=== PATIENT | female | born 1960 | race American Indian/Alaskan Native ===

== ENCOUNTER 2017-07-16 09:23 | Emergency (ER) | payer OTHER ==
[2017-07-16 09:41] VITALS: BP 146/99
[2017-07-16 10:45] LABS: Basophils # (Auto) 0.1 K/mm3 (0.0-0.1); Basophils % (Auto) 1.1 % (0.0-1.8); Eosinophils # (Auto) 0.1 K/mm3 (0.0-0.4); Eosinophils % (Auto) 2.7 % (0.0-4.3); Hematocrit 43.8 % (30.3-42.9); Hemoglobin 14.3 gm/dl (10.1-14.3); Lymphocytes # (Auto) 1.3 K/mm3 (1.2-5.4); Lymphocytes % (Auto) 25.7 % (13.4-35.0); Mean Corpuscular HGB Conc 33 % (30-34); Mean Corpuscular Hemoglobin 30 pg (28-32); Mean Corpuscular Volume 91 fl (79-97); Monocytes # (Auto) 0.3 K/mm3 (0.0-0.8); Platelet Count 215 K/mm3 (140-440); Red Cell Distribution Width 15.3 % (13.2-15.2)
[2017-07-16 10:55] LABS: Alanine Aminotransferase 9 units/L (7-56); Albumin 4.6 g/dL (3.9-5); BUN/Creatinine Ratio 9; Blood Urea Nitrogen 7 mg/dL (7-17); Calcium 9.9 mg/dL (8.4-10.2); Hemolysis Index 15
[2017-07-16 12:02] LABS: Bilirubin,Urine NEG (Negative); Blood,Urine NEG (Negative); Color,Urine Yellow (Yellow); Mucus,Urine FEW /HPF; Protein,Urine <15 mg/dL mg/dL (Negative); Urobilinogen,Urine < 2.0 mg/dL (<2.0)
--- NOTE | 2017-07-16 12:41 | Emergency Department Report ---
Blank Doc - Documentation Documentation: Patient is a 56-year-old asthmatic female sent to days of cough congestion and sinus pressure body aches. Patient states she has subjective fevers. Patient will have chest x-ray rule out atypical pneumonia H and has pain in the ethmoid sinus region consistent with an acute sinusitis
--- NOTE | 2017-07-16 13:21 | XRay Report ---
ROUTINE CHEST, TWO VIEWS: HISTORY: Cough. The trachea, heart, mediastinal contour, lung dior and bony thorax are unremarkable. IMPRESSION: Unremarkable chest x-ray.
--- NOTE | 2017-07-16 13:31 | Emergency Department Report ---
HPI - General Chief Complaint: Chest Pain Time Seen by Provider: 07/16/17 12:35 - HPI HPI: Patient is a 56-year-old female with no prior medical condition presents to ED presents with upper respiratory symptoms such as cough,, body aches and fever 2 days. Patient states cough is intermittent and productive with sputum. Patient states she takes a blood pressure medication daily.. ED Past Medical Hx - Past Medical History Previous Medical History?: Yes Hx Hypertension: Yes Additional medical history: anemia - Surgical History Past Surgical History?: Yes Hx Breast Surgery: Yes (reduction) - Social History Smoking Status: Never Smoker Substance Use Type: None - Medications Home Medications: Home Medications Medication Instructions Recorded Confirmed Last Taken Type ALBUTEROL Inhaler [ProAir HFA 1 puff IH TID #1 pump 07/16/17 Unknown Rx Inhaler] Acetamin/Codeine 120-12Mg/5 ml 5 ml PO TID PRN #60 ml 07/16/17 Unknown Rx [Tylenol/Codeine] Amoxicillin/K Clav Tab [Augmentin 1 tab PO Q12HR #14 tab 07/16/17 Unknown Rx 875 mg] Benzonatate [Tessalon Perles] 100 mg PO Q8HR #24 capsule 07/16/17 Unknown Rx ED Review of Systems ROS: Stated complaint: FLU LIKE SYMPTOMS Other details as noted in HPI Constitutional: denies: chills, fever Eyes: denies: eye pain, eye discharge, vision change ENT: denies: ear pain, throat pain Respiratory: denies: cough, shortness of breath, wheezing Cardiovascular: denies: chest pain, palpitations Endocrine: no symptoms reported Gastrointestinal: denies: abdominal pain, nausea, diarrhea Genitourinary: denies: urgency, dysuria, discharge Musculoskeletal: denies: back pain, joint swelling, arthralgia Skin: denies: rash, lesions Neurological: denies: headache, weakness, paresthesias Psychiatric: denies: anxiety, depression Hematological/Lymphatic: denies: easy bleeding, easy bruising Physical Exam - Physical Exam Vital Signs: Vital Signs 07/16/17 09:37 Temperature 98.6 F Pulse Rate 82 Respiratory 18 Rate Blood Pressure 146/99 O2 Sat by Pulse 98 Oximetry Physical Exam: GENERAL: Alert and oriented x3, no apparent distress, Normal Gait, atraumatic. HEAD: Head is normocephalic and a-traumatic. EYES: Extra ocular muscles are intact. Pupils are equal, round, and reactive to light and accommodation. EARS: symetrical, atraumatic, non tender, ear canal clear and moderate cerumen, tympanic membrance non inflamed. gross auditory nml bilaterally. NOSE: Nose symetrical, Nontender,Nares appeared normal. MOUTH:Mouth is well hydrated and without lesions. Tonsils nonerythematous or swollen, Uvula midline, Tongue not elevated. Mucous membranes are moist. Posterior pharynx clear, no exudate or lesions. Patent airways. NECK: Supple. Non edematous, No carotid bruits. No lymphadenopathy or thyromegaly. No C-spine tenderness LUNGS: Symetrical with respiration, No wheezing, no rales or crackles, CTAB. HEART: S1, S2 present, regular rate and rhythm without murmur, no rubs, no gallops. Non tender to palpation ABDOMEN: No organomegaly was noted,Positive bowel sounds, soft, and non- distended. . Nontender to palpation on all Quadrants, NO CVA tenderness. BACK: Full range of motion, no spinal tenderness, nontender to palpation. BREAST: Symetrical, Supple bilaterally, No Masses, lumps, lesions, ulcerations. GENITOURINARY: External genitalia without erythema, exudate or discharge. Vaginal vault is without discharge. Cervix is of normal color without lesion. Cervical os is closed. No bleeding noted. Uterus is noted to be of normal size and nontender. No cervical motion tenderness. No masses are palpated. The adnexa are without masses or tenderness. UROGENITAL: No scrotal mass, Scrotum non tender to palpation bilaterally, no hernia, no scars or penile discharge. EXTREMITIES/MUSCULOSKELETAL: No cyanosis, clubbing, rash, lesions or edema. Full ROM bilaterally. UE/LE Pulses 2+ bilaterally. LE and UE 5+ strength bilaterally, straight leg raise negative bilaterally NEUROLOGIC: The patient is cooperative with no focal neurologic deficits. Normal speech. Normal sensation in bilateral upper and lower extremities, No loss of sensation, SKIN: Warm and dry, No lesions, No ulceration or induration present. ED Course Vital Signs 07/16/17 09:37 Temperature 98.6 F Pulse Rate 82 Respiratory 18 Rate Blood Pressure 146/99 O2 Sat by Pulse 98 Oximetry ED Medical Decision Making - Lab Data Result diagrams: 07/16/17 09:55 07/16/17 09:55 - Radiology Data Radiology results: report reviewed, image reviewed cc: SHANNA LOPEZ MD Fluoro Time In Minutes: ROUTINE CHEST, TWO VIEWS: HISTORY: Cough. The trachea, heart, mediastinal contour, lung dior and bony thorax are unremarkable. IMPRESSION: Unremarkable chest x-ray. Transcribed By: TTR Dictated By: CAMILA VILLAGRAN JR, MD Electronically Authenticated By: CAMILA VILLAGRAN JR, MD Signed Date/Time: 07/16/17 1314 Critical care attestation.: If time is entered above; I have spent that time in minutes in the direct care of this critically ill patient, excluding procedure time. ED Disposition Clinical Impression: Bronchitis, Sinusitis Upper respiratory infection Qualifiers: URI type: unspecified URI Qualified Code(s): J06.9 - Acute upper respiratory infection, unspecified Disposition: DC-01 TO HOME OR SELFCARE Is pt being admited?: No Does the pt Need Aspirin: No Condition: Stable Instructions: Sinusitis (ED), Upper Respiratory Infection (ED), Chronic Bronchitis (ED), Cold Symptoms (ED) Additional Instructions: Make sure to follow up with the primary care physician as discussed. Take all your medications as you've been prescribed. If you have any worsening symptoms or develop new symptoms please return to ED immediately. Prescriptions: Acetamin/Codeine 120-12Mg/5 ml [Tylenol/Codeine] 5 ml PO TID PRN #60 ml PRN Reason: Pain ALBUTEROL Inhaler [ProAir HFA Inhaler] 1 puff IH TID #1 pump Amoxicillin/K Clav Tab [Augmentin 875 mg] 1 tab PO Q12HR #14 tab Benzonatate [Tessalon Perles] 100 mg PO Q8HR #24 capsule Referrals: PRIMARY CAREMD [Primary Care Provider] - 3-5 Days ROBB GRECO MD [Referring] - 3-5 Days [facility] [Outside] - 3-5 Days [facility] [Outside] - 3-5 Days Forms: Accompanied Note, Work/School Release Form(ED) Time of Disposition: 13:40
== END 2017-07-16 14:49 | disposition home or self-care (01) ==
LOC: ED 09:23
DX: J40 Bronchitis, not specified as acute or chronic (principal); J32.9 Chronic sinusitis, unspecified; J06.9 Acute upper respiratory infection, unspecified; I10 Essential (primary) hypertension
CPT/HCPCS: 36415; 71046; 80053; 81001; 84484; 85025; 93005; 93010

== ENCOUNTER 2017-07-25 18:48 | Inpatient (IN) | payer OTHER ==
--- NOTE | 2017-07-25 19:04 | Emergency Department Report ---
ED Neuro Deficit HPI - General Stated Complaint: POSSIBLE STROKE SX Time Seen by Provider: 07/25/17 18:58 Source: patient, family Mode of arrival: Stretcher Limitations: Altered Mental Status, Physical Limitation - History of Present Illness Initial Comments: 57-year-old female with a past medical history of obesity and hypertension presents to the hospital with acute alteration in mental status and possible stroke. Patient is nonverbal upon presentation to the ED therefore history of present illness obtained from her was present during the initiation of symptoms. He estimates since started at approximately 6:15 or 6:30 PM. Patient was on a bed talking on the phone and complained of chest pain and shortness of breath. She tried to stand she fell down to the ground and needed assistance to get up and be placed back into the bed by her . Patient then stopped speaking and developed an abnormal stare. Currently patient makes eye contact and able to follow some commands but not reliably following commands and not nodding yes or no to questions. - Related Data Home Medications: Home Medications Medication Instructions Recorded Confirmed Last Taken Aspirin [Aspir-Low] 81 mg PO DAILY 07/25/17 07/25/17 Unknown Losartan Potassium [Cozaar] 25 mg PO DAILY 07/25/17 07/25/17 Unknown Previous Rx's Medication Instructions Recorded Last Taken Type ALBUTEROL Inhaler [ProAir HFA 1 puff IH TID #1 pump 07/16/17 Unknown Rx Inhaler] Acetamin/Codeine 120-12Mg/5 ml 5 ml PO TID PRN #60 ml 07/16/17 Unknown Rx [Tylenol/Codeine] Amoxicillin/K Clav Tab [Augmentin 1 tab PO Q12HR #14 tab 07/16/17 Unknown Rx 875 mg] Benzonatate [Tessalon Perles] 100 mg PO Q8HR #24 capsule 07/16/17 Unknown Rx Allergies/Adverse Reactions: Allergies Allergy/AdvReac Type Severity Reaction Status Date / Time No Known Allergies Allergy Unverified 07/16/17 09:37 ED Review of Systems ROS: Stated complaint: POSSIBLE STROKE SX Other details as noted in HPI Comment: Unobtainable due to pts medical conditions ED Past Medical Hx - Past Medical History Hx Hypertension: Yes Additional medical history: anemia - Surgical History Hx Breast Surgery: Yes (reduction) - Social History Smoking Status: Never Smoker Substance Use Type: None - Medications Home Medications: Home Medications Medication Instructions Recorded Confirmed Last Taken Type ALBUTEROL Inhaler [ProAir HFA 1 puff IH TID #1 pump 07/16/17 07/25/17 Unknown Rx Inhaler] Acetamin/Codeine 120-12Mg/5 ml 5 ml PO TID PRN #60 ml 07/16/17 07/25/17 Unknown Rx [Tylenol/Codeine] Amoxicillin/K Clav Tab [Augmentin 1 tab PO Q12HR #14 tab 07/16/17 07/25/17 Unknown Rx 875 mg] Benzonatate [Tessalon Perles] 100 mg PO Q8HR #24 capsule 07/16/17 07/25/17 Unknown Rx Aspirin [Aspir-Low] 81 mg PO DAILY 07/25/17 07/25/17 Unknown History Losartan Potassium [Cozaar] 25 mg PO DAILY 07/25/17 07/25/17 Unknown History ED Neuro Physical Exam - General Suspected Stroke: Yes - NIHSS Assessment Interval: Baseline 1a. Level of Consciousness: alert 1b. LOC Questions: answers no questions correctly 1c. LOC Commands: performs no tasks correctly 2. Best Gaze: normal 3. Visual: no visual loss 4. Facial Palsy: normal symmetrical movement 5b. Motor Arm Right: drift 5a. Motor Arm Left: some gravity effort 6a. Motor Leg Left: no gravity effort 6b. Motor Leg Right: no gravity effort 7. Limb Ataxia: absent (unable to access) 8. Sensory: normal 9. Best Language: mute/global aphasia 10. Dysarthria: severe dysarthria 11. Extinction/Inattention: no abnormality - Other Other exam information: General: No limitations, patient is alert in no acute distress Head exam: Atraumatic, normocephalic Eyes exam: Normal appearance, pupils equal reactive to light ENT: Moist mucous membrane, normal oropharynx Neck exam: Normal inspection, full range of motion, no meningismus nontender Respiratory exam: Clear to auscultation bilateral, no wheezes, rales, crackles Cardiovascular: Normal rate and rhythm, normal heart sounds Abdomen: Soft, nondistended, and nontender, with normal bowel sounds, no rebound, or guarding Extremity: Full range of motion normal inspection no deformity Back: Normal Inspection, full range of motion, no tenderness Neurologic: Alert Psychiatric: normal affect, normal mood Skin: Warm, dry, intact ED Course Vital Signs 07/25/17 07/25/17 07/25/17 18:48 19:22 19:24 Pulse Rate 93 H Pulse Rate [ Right Arm] Respiratory 18 Rate Respiratory Rate [Right Arm ] Blood Pressure 201/117 197/118 Blood Pressure [Right Arm] O2 Sat by Pulse 100 98 98 Oximetry O2 Sat by Pulse Oximetry [ Right Arm] 07/25/17 07/25/17 07/25/17 19:26 19:28 19:30 Pulse Rate Pulse Rate [ Right Arm] Respiratory Rate Respiratory Rate [Right Arm ] Blood Pressure 197/118 197/118 197/118 Blood Pressure [Right Arm] O2 Sat by Pulse 96 97 96 Oximetry O2 Sat by Pulse Oximetry [ Right Arm] 07/25/17 07/25/17 07/25/17 19:32 19:34 19:36 Pulse Rate 87 77 81 Pulse Rate [ Right Arm] Respiratory 24 13 19 Rate Respiratory Rate [Right Arm ] Blood Pressure 173/99 173/99 173/99 Blood Pressure [Right Arm] O2 Sat by Pulse 96 97 97 Oximetry O2 Sat by Pulse Oximetry [ Right Arm] 07/25/17 07/25/17 07/25/17 19:38 19:39 19:41 Pulse Rate 80 74 70 Pulse Rate [ Right Arm] Respiratory 24 14 24 Rate Respiratory Rate [Right Arm ] Blood Pressure 173/99 Blood Pressure [Right Arm] O2 Sat by Pulse 96 96 96 Oximetry O2 Sat by Pulse Oximetry [ Right Arm] 07/25/17 07/25/17 07/25/17 19:42 20:09 20:10 Pulse Rate 73 72 Pulse Rate [ Right Arm] Respiratory 26 H 23 Rate Respiratory Rate [Right Arm ] Blood Pressure 173/99 169/100 Blood Pressure [Right Arm] O2 Sat by Pulse 96 97 Oximetry O2 Sat by Pulse Oximetry [ Right Arm] 07/25/17 07/25/17 07/25/17 20:11 20:13 20:15 Pulse Rate 72 77 77 Pulse Rate [ Right Arm] Respiratory 24 25 H 20 Rate Respiratory Rate [Right Arm ] Blood Pressure 169/100 169/100 186/106 Blood Pressure [Right Arm] O2 Sat by Pulse 97 97 97 Oximetry O2 Sat by Pulse Oximetry [ Right Arm] 07/25/17 07/25/17 07/25/17 20:17 20:19 20:21 Pulse Rate 73 76 71 Pulse Rate [ Right Arm] Respiratory 22 24 22 Rate Respiratory Rate [Right Arm ] Blood Pressure 186/106 186/106 186/106 Blood Pressure [Right Arm] O2 Sat by Pulse 98 97 98 Oximetry O2 Sat by Pulse Oximetry [ Right Arm] 07/25/17 07/25/17 07/25/17 20:23 20:25 20:27 Pulse Rate 72 77 69 Pulse Rate [ Right Arm] Respiratory 17 16 22 Rate Respiratory Rate [Right Arm ] Blood Pressure 186/106 186/106 186/106 Blood Pressure [Right Arm] O2 Sat by Pulse 98 96 97 Oximetry O2 Sat by Pulse Oximetry [ Right Arm] 07/25/17 07/25/17 07/25/17 20:28 20:29 20:30 Pulse Rate 72 72 Pulse Rate [ Right Arm] Respiratory 18 22 Rate Respiratory Rate [Right Arm ] Blood Pressure 186/106 186/106 186/103 Blood Pressure [Right Arm] O2 Sat by Pulse 98 98 Oximetry O2 Sat by Pulse Oximetry [ Right Arm] 07/25/17 07/25/17 07/25/17 20:31 20:32 20:33 Pulse Rate 77 78 78 Pulse Rate [ 72 Right Arm] Respiratory 23 20 19 Rate Respiratory 20 Rate [Right Arm ] Blood Pressure 186/103 186/103 Blood Pressure 186/103 [Right Arm] O2 Sat by Pulse 98 97 Oximetry O2 Sat by Pulse 98 Oximetry [ Right Arm] 07/25/17 07/25/17 07/25/17 20:34 20:35 20:37 Pulse Rate 80 82 84 Pulse Rate [ Right Arm] Respiratory 14 23 20 Rate Respiratory Rate [Right Arm ] Blood Pressure 176/94 176/94 176/94 Blood Pressure [Right Arm] O2 Sat by Pulse 98 97 97 Oximetry O2 Sat by Pulse Oximetry [ Right Arm] 07/25/17 07/25/17 07/25/17 20:39 20:40 20:41 Pulse Rate 86 90 90 Pulse Rate [ Right Arm] Respiratory 19 19 17 Rate Respiratory Rate [Right Arm ] Blood Pressure 176/94 185/104 185/104 Blood Pressure [Right Arm] O2 Sat by Pulse 96 98 97 Oximetry O2 Sat by Pulse Oximetry [ Right Arm] 07/25/17 07/25/17 07/25/17 20:43 20:45 20:46 Pulse Rate 86 90 84 Pulse Rate [ Right Arm] Respiratory 14 23 22 Rate Respiratory Rate [Right Arm ] Blood Pressure 185/104 168/85 168/85 Blood Pressure [Right Arm] O2 Sat by Pulse 97 97 96 Oximetry O2 Sat by Pulse Oximetry [ Right Arm] 07/25/17 07/25/17 07/25/17 20:47 20:49 20:51 Pulse Rate 85 85 88 Pulse Rate [ Right Arm] Respiratory 22 25 H 24 Rate Respiratory Rate [Right Arm ] Blood Pressure 168/85 168/85 144/85 Blood Pressure [Right Arm] O2 Sat by Pulse 97 97 96 Oximetry O2 Sat by Pulse Oximetry [ Right Arm] 07/25/17 07/25/17 07/25/17 20:53 20:54 20:55 Pulse Rate 87 89 Pulse Rate [ 85 Right Arm] Respiratory 10 L 20 Rate Respiratory 20 Rate [Right Arm ] Blood Pressure 144/85 145/88 Blood Pressure 144/85 [Right Arm] O2 Sat by Pulse 97 97 Oximetry O2 Sat by Pulse 96 Oximetry [ Right Arm] 07/25/17 07/25/17 07/25/17 20:57 20:59 21:00 Pulse Rate 91 H 86 87 Pulse Rate [ Right Arm] Respiratory 18 26 H 17 Rate Respiratory Rate [Right Arm ] Blood Pressure 145/88 145/88 139/85 Blood Pressure [Right Arm] O2 Sat by Pulse 96 97 97 Oximetry O2 Sat by Pulse Oximetry [ Right Arm] 07/25/17 07/25/17 07/25/17 21:01 21:03 21:05 Pulse Rate 85 89 87 Pulse Rate [ Right Arm] Respiratory 15 23 16 Rate Respiratory Rate [Right Arm ] Blood Pressure 139/85 139/85 144/84 Blood Pressure [Right Arm] O2 Sat by Pulse 97 98 97 Oximetry O2 Sat by Pulse Oximetry [ Right Arm] 07/25/17 07/25/17 07/25/17 21:07 21:09 21:10 Pulse Rate 88 87 84 Pulse Rate [ Right Arm] Respiratory 22 20 16 Rate Respiratory Rate [Right Arm ] Blood Pressure 144/84 144/84 140/80 Blood Pressure [Right Arm] O2 Sat by Pulse 98 97 95 Oximetry O2 Sat by Pulse Oximetry [ Right Arm] 07/25/17 07/25/17 07/25/17 21:11 21:13 21:15 Pulse Rate 84 86 88 Pulse Rate [ Right Arm] Respiratory 20 19 23 Rate Respiratory 20 Rate [Right Arm ] Blood Pressure 140/80 140/80 139/81 Blood Pressure 144/84 [Right Arm] O2 Sat by Pulse 96 96 95 Oximetry O2 Sat by Pulse 97 Oximetry [ Right Arm] 07/25/17 21:17 Pulse Rate 90 Pulse Rate [ Right Arm] Respiratory 20 Rate Respiratory Rate [Right Arm ] Blood Pressure 139/81 Blood Pressure [Right Arm] O2 Sat by Pulse 97 Oximetry O2 Sat by Pulse Oximetry [ Right Arm] - Consultations Consultation #1: 07/25/17 19:[address] Nair with telemetry neurologist. Patient now in CT. will evaluate 07/25/17 19:25 Dr Nair evaluated pt and received verbal consent from for tpa. Labetolol IVP ordered for htn while cardene drip pending from pharmacy. Once systolic blood pressure is less than 185 and diastolic pressure is less than 100 patient will receive ordered TPA. RN informed - Lab Data Result diagrams: 07/25/17 19:02 07/25/17 19:02 Lab Results 07/25/17 07/25/17 07/25/17 Range/Units 19:02 19:02 19:02 WBC 6.0 (4.5-11.0) K/mm3 RBC 4.93 (3.65-5.03) M/mm3 Hgb 14.9 H (10.1-14.3) gm/dl Hct 44.8 H (30.3-42.9) % MCV 91 (79-97) fl MCH 30 (28-32) pg MCHC 33 (30-34) % RDW 14.9 (13.2-15.2) % Plt Count 260 (140-440) K/mm3 Lymph % (Auto) 44.2 H (13.4-35.0) % [place] % (Auto) 8.0 H (0.0-7.3) % Eos % (Auto) 2.0 (0.0-4.3) % Baso % (Auto) 1.1 (0.0-1.8) % Lymph # 2.7 (1.2-5.4) K/mm3 [place] # 0.5 (0.0-0.8) K/mm3 Eos # 0.1 (0.0-0.4) K/mm3 Baso # 0.1 (0.0-0.1) K/mm3 Seg Neutrophils % 44.7 (40.0-70.0) % Seg Neutrophils # 2.7 (1.8-7.7) K/mm3 PT 13.0 (12.2-14.9) Sec. INR 0.94 (0.87-1.13) APTT 36.5 (24.2-36.6) Sec. Thrombin Time 19.5 (15.1-19.6) Sec. Sodium 140 (137-145) mmol/L Potassium 3.7 (3.6-5.0) mmol/L Chloride 101.3 (98-107) mmol/L Carbon Dioxide 25 (22-30) mmol/L Anion Gap 17 mmol/L BUN 11 (7-17) mg/dL Creatinine 0.9 (0.7-1.2) mg/dL Estimated GFR > 60 ml/min BUN/Creatinine Ratio 12 % Glucose 97 (65-100) mg/dL Calcium 9.8 (8.4-10.2) mg/dL Total Creatine Kinase 209 H (30-135) units/L CK-MB (CK-2) 1.8 (0.0-4.0) ng/mL CK-MB (CK-2) Rel Index 0.8 (0-4) Troponin T (0.00-0.029) ng/mL 07/25/17 Range/Units 19:02 WBC (4.5-11.0) K/mm3 RBC (3.65-5.03) M/mm3 Hgb (10.1-14.3) gm/dl Hct (30.3-42.9) % MCV (79-97) fl MCH (28-32) pg MCHC (30-34) % RDW (13.2-15.2) % Plt Count (140-440) K/mm3 Lymph % (Auto) (13.4-35.0) % [place] % (Auto) (0.0-7.3) % Eos % (Auto) (0.0-4.3) % Baso % (Auto) (0.0-1.8) % Lymph # (1.2-5.4) K/mm3 [place] # (0.0-0.8) K/mm3 Eos # (0.0-0.4) K/mm3 Baso # (0.0-0.1) K/mm3 Seg Neutrophils % (40.0-70.0) % Seg Neutrophils # (1.8-7.7) K/mm3 PT (12.2-14.9) Sec. INR (0.87-1.13) APTT (24.2-36.6) Sec. Thrombin Time (15.1-19.6) Sec. Sodium (137-145) mmol/L Potassium (3.6-5.0) mmol/L Chloride (98-107) mmol/L Carbon Dioxide (22-30) mmol/L Anion Gap mmol/L BUN (7-17) mg/dL Creatinine (0.7-1.2) mg/dL Estimated GFR ml/min BUN/Creatinine Ratio % Glucose (65-100) mg/dL Calcium (8.4-10.2) mg/dL Total Creatine Kinase (30-135) units/L CK-MB (CK-2) (0.0-4.0) ng/mL CK-MB (CK-2) Rel Index (0-4) Troponin T < 0.010 (0.00-0.029) ng/mL - EKG Data -: EKG Interpreted by Al EKG shows normal: sinus rhythm, axis (qrs -29), QRS complexes (97), ST-T waves ( no stemi/t inv) Rate: normal (93) - Radiology Data Radiology results: report reviewed read by radiology ct head: No ischemic changes. CTA head: naf CTA neck: naf - Medical Decision Making No change in neurologic exam during ED stay. CTA of unremarkable different endocrine negative for transfer. Patient was admitted here for further treatment for acute stroke symptoms and status post TPA in the ED - Differential Diagnosis CVA, seizure, psychosis, malingering, hypertensive emergency Critical Care Time: No Critical care attestation.: If time is entered above; I have spent that time in minutes in the direct care of this critically ill patient, excluding procedure time. ED Disposition Clinical Impression: Acute CVA (cerebrovascular accident), Uncontrolled hypertension, Received intravenous tissue plasminogen activator (t-PA) in emergency department Disposition: OP ADMIT IP TO THIS HOSP Is pt being admited?: Yes Condition: Stable Time of Disposition: 21:40 (Dr Gramajo/hosp)
[2017-07-25 19:09] LABS: Basophils # (Auto) 0.1 K/mm3 (0.0-0.1); Basophils % (Auto) 1.1 % (0.0-1.8); Eosinophils # (Auto) 0.1 K/mm3 (0.0-0.4); Hematocrit 44.8 % (30.3-42.9); Hemoglobin 14.9 gm/dl (10.1-14.3); Lymphocytes # (Auto) 2.7 K/mm3 (1.2-5.4); Lymphocytes % (Auto) 44.2 % (13.4-35.0); Mean Corpuscular HGB Conc 33 % (30-34); Mean Corpuscular Hemoglobin 30 pg (28-32); Mean Corpuscular Volume 91 fl (79-97); Monocytes # (Auto) 0.5 K/mm3 (0.0-0.8); Platelet Count 260 K/mm3 (140-440); Red Blood Count 4.93 M/mm3 (3.65-5.03); Red Cell Distribution Width 14.9 % (13.2-15.2)
[2017-07-25 19:19] LABS: INR 0.94 (0.87-1.13)
[2017-07-25 19:20] LABS: Creatine Kinase MB 1.8 ng/mL (0.0-4.0); Partial Thromboplastin Time 36.5 Sec. (24.2-36.6); Thrombin Time 19.5 Sec. (15.1-19.6)
[2017-07-25 19:23] LABS: BUN/Creatinine Ratio 12; Blood Urea Nitrogen 11 mg/dL (7-17); Calcium 9.8 mg/dL (8.4-10.2); Hemolysis Index 7
--- NOTE | 2017-07-25 19:23 | Cat Scan Report ---
FINAL REPORT PROCEDURE: CT HEAD/BRAIN WO CON TECHNIQUE: Computerized tomography of the head was performed without contrast material. HISTORY: ams, ? cva COMPARISON: No prior studies are available for comparison. FINDINGS: Skull and scalp: Normal. Paranasal sinuses: Normal. Ventricles and subarachnoid spaces: Normal. Cerebrum: No evidence of hemorrhage, acute infarction or mass . Cerebellum and brainstem: No evidence of hemorrhage, acute infarction or mass. Vasculature: Normal. Comments: No acute ischemic change seen at this time. No hyperdense MCA IMPRESSION: No acute ischemic change. If symptoms persists recommend MRI
[2017-07-25] MEDS ORDERED: NACL 0.9% IV ONE (19:30)
[2017-07-25] MEDS ORDERED: ACTIVASE IV ONE ×2 (19:30)
[2017-07-25] MEDS ORDERED: NORMODYNE IV ONE (19:30)
[2017-07-25] MEDS ORDERED: CARDENE 50 MG in NACL 0.9% 250ML 230 ML IV SCH (20:00)
--- NOTE | 2017-07-25 20:45 | XRay Report ---
FINAL REPORT PROCEDURE: XR CHEST 1V AP TECHNIQUE: Chest radiograph anteroposterior view. CPT 08460 HISTORY: cp COMPARISON: No prior studies are available for comparison. FINDINGS: Heart is mildly enlarged. There is mild congestion. No kamari heart failure. No infiltrate. Shallow inspiration. Morbid obesity. IMPRESSION: Enlarged heart with congestion without evidence of failure. No infiltrate or effusion..
--- NOTE | 2017-07-25 21:13 | Cat Scan Report ---
FINAL REPORT PROCEDURE: CT ANGIO HEAD TECHNIQUE: Computerized tomographic angiography of the head was performed after the IV injection of iodinated nonionic contrast including image processing. The image data was postprocessed using 2-dimensional multiplanar reformatted (MPR) and 3-dimensional (MIP and/or volume rendered) techniques. HISTORY: cva COMPARISON: No prior studies are available for comparison. FINDINGS: Cerebrum: No evidence of hemorrhage, acute ischemia or mass. Cerebellum: No evidence of hemorrhage, acute ischemia or mass. Subarachnoid spaces and ventricles: Normal. Intracranial vessels: Carotid siphon: Normal. Anterior cerebral: Normal. Middle cerebral: Normal. Posterior cerebral:Normal. Vertebral arteries including basilar: Normal. Aneurysms: None. Dural sinuses: Normal. IMPRESSION: Normal Examination.
--- NOTE | 2017-07-25 21:19 | Cat Scan Report ---
FINAL REPORT PROCEDURE: CT ANGIO NECK TECHNIQUE: Computerized tomographic angiography of the neck was performed after the IV injection of iodinated nonionic contrast including image processing. The image data was postprocessed using 2-dimensional multiplanar reformatted (MPR) and 3-dimensional (MIP and/or volume rendered) techniques. HISTORY: cva COMPARISON: No prior studies are available for comparison. Note: Assessment of carotid artery stenosis is based on measurement of the distal internal carotid artery diameter as the denominator for stenosis calculations and the [place] Symptomatic Carotid Endarterectomy Trial (NASCET) stenosis criteria . CPT 3100F FINDINGS: Sinuses: Normal . Non vascular cervical structures: No significant abnormality . Aortic arch: Normal . Right carotid artery: Normal . Left carotid artery: Normal . Vertebral arteries: Normal . IMPRESSION: Normal Examination
[2017-07-25] MEDS ORDERED: SODIUM CHLORIDE FLUSH SYRINGE 10 ML IV PRN (22:09)
[2017-07-25] MEDS ORDERED: APRESOLINE IV PRN (22:09)
--- NOTE | 2017-07-25 22:15 | History and Physical Report ---
History of Present Illness Date of examination: 07/25/17 History of present illness: 57-year-old woman was brought to the emergency room for evaluation. She has a history of hypertension, the son stated that she was on the phone check in someone, she complained of chest pain, shortness of breath and then went a phasic and had difficulty standing. Review of systems is unobtainable NoPAST MEDICAL HISTORY: Hypertension PAST SURGICAL HISTORY: Breast reduction, surgery on left hand SOCIAL HISTORY: No tobacco, alcohol, drugs FAMILY HISTORY: Hypertension Medications and Allergies Allergies Allergy/AdvReac Type Severity Reaction Status Date / Time No Known Allergies Allergy Unverified 07/16/17 09:37 Home Medications Medication Instructions Recorded Confirmed Last Taken Type ALBUTEROL Inhaler [ProAir HFA 1 puff IH TID #1 pump 07/16/17 07/25/17 Unknown Rx Inhaler] Acetamin/Codeine 120-12Mg/5 ml 5 ml PO TID PRN #60 ml 07/16/17 07/25/17 Unknown Rx [Tylenol/Codeine 120-12 mg/5 ml] Benzonatate [Tessalon Perles] 100 mg PO Q8HR #24 capsule 07/16/17 07/25/17 Unknown Rx Losartan Potassium [Cozaar] 25 mg PO DAILY 07/25/17 07/25/17 Unknown History Aspirin [Aspir-Low] 81 mg PO QAM #90 tablet. 08/01/17 Unknown Rx Clopidogrel Bisulfate [Plavix] 75 mg PO QHS #90 tablet 08/01/17 Unknown Rx Simvastatin 20 mg PO QHS #30 tablet 08/01/17 Unknown Rx Active Meds: Active Medications Hydralazine HCl (Apresoline) 5 mg IV Q6H PRN PRN Reason: Keep SBP between 160-185 mm Hg Nicardipine HCl 50 mg/ Sodium (Chloride) 250 mls @ 25 mls/hr IV TITR MARY ANN; Protocol Last Titration: 07/25/17 20:41 Dose: 10 mg/hr, 50 mls/hr Ondansetron HCl (Zofran) 4 mg IV Q8H PRN PRN Reason: N/V unrelieved by Reglan Sodium Chloride (Sodium Chloride Flush Syringe 10 Ml) 10 ml IV PRN PRN PRN Reason: LINE FLUSH Exam - Physical Exam Narrative exam: Gen. appearance: Patient lying in bed, no apparent distress HEENT: Normocephalic, atraumatic, pupils equally round and reactive to light, extraocular movement intact, and no sclericterus,. No JVD or thyromegaly or nodule,neck supple, no carotid bruit ,mucous membranes moist, no exudate or erythema Heart: S1, S2, regular rate and rhythm Lungs: Clear to auscultation bilaterally, breathing comfortable Abdomen: Positive bowel sounds, nontender, nondistended, no organomegaly Extremity: No edema, cyanosis, clubbing Skin: No rash, nodules, warm, dry Neuro: aphasic, difficult to assess - Constitutional Vitals: Temp Pulse Resp BP Pulse Ox 90 20 139/81 97 07/25/17 21:17 07/25/17 21:17 07/25/17 21:17 07/25/17 21:17 Results - Labs CBC & Chem 7: 07/28/17 07:26 07/28/17 07:26 Labs: Abnormal lab results 07/25/17 07/25/17 Range/Units 19:02 19:02 Hgb 14.9 H (10.1-14.3) gm/dl Hct 44.8 H (30.3-42.9) % Lymph % (Auto) 44.2 H (13.4-35.0) % [place] % (Auto) 8.0 H (0.0-7.3) % Total Creatine Kinase 209 H (30-135) units/L - Imaging and Cardiology Chest x-ray: image reviewed CT Scan - head: report reviewed (1 wall) Assessment and Plan CTA is head and neck Assessment Acute CVA, status post TPA Chest pain Hypertension The medicine Obtain MRI of the he, echo, CTA was done done Do neurochecks, cpnsult critical care Consult neurology, physical and occupational therapy Patient fail swallow test, hold oral medications including statin no aspirin, s/p TPA IV Hydralazine for blood pressure control Check cardiac enzymes, d-dimer DVT prophylaxis addendum Nurse called to say patient complain of headache STat CT head obtained, no bleed l
--- NOTE | 2017-07-26 00:59 | Cat Scan Report ---
FINAL REPORT EXAM: CT HEAD/BRAIN WO CON HISTORY: headache post tpa TECHNIQUE: Routine imaging was obtained of the brain without IV contrast. Comparison is made to the previous study 07/25/2017. FINDINGS: Since the baseline study, there is no evidence of acute stroke or hemorrhage. The ventricular system is appropriate in size and is symmetric. The basal cisterns appear normal. The visualized sinuses are clear. The mastoid air cells are well pneumatized. IMPRESSION: No evidence of acute stroke or hemorrhage.
[2017-07-26 01:10] LABS: Creatine Kinase MB 1.5 ng/mL (0.0-4.0)
[2017-07-26 03:43] LABS: Chol/HDL Ratio 3.39 %
[2017-07-26 08:38] LABS: Creatine Kinase MB 1.3 ng/mL (0.0-4.0)
[2017-07-26] MEDS ORDERED: ATIVAN IV ONE (10:21)
[2017-07-26] MEDS ORDERED: ATIVAN ONE (10:22)
--- NOTE | 2017-07-26 11:42 | Magnetic Resonance Report ---
MRI OF THE BRAIN WITHOUT CONTRAST: HISTORY: Stroke PROCEDURE: Multiplanar, multisequence MR imaging of the brain without IV contrast was performed. FINDINGS: Compared to the CT head dated 07/26/17 and 07/25/17. The brain parenchyma signal intensity and its bragg white interface are within normal limits on all sequences. No evidence for acute ischemia, hemorrhage or mass. No chronic infarct or extra-axial fluid collection. The midline structures are central. The basal cisterns are patent. Normal ventricular size. The orbital cavities and sella turcica demonstrate no abnormality. The visualized paranasal sinuses and mastoid air cells are well aerated. IMPRESSION: Unremarkable non-enhanced MRI of the brain.
--- NOTE | 2017-07-26 11:57 | Consultation ---
History of Present Illness Consult date: 07/26/17 Requesting physician: RASHAUN RESENDEZ Reason for Consult: Acute CVA. Chief complaint: Left side weakness. History of present illness: 57-year-old right handed woman with a past medical history of HTN and obesity was brought to the emergency room for evaluation. Her son stated that she was on the phone chatting with someone, then she complained of chest pain, shortness of breath and then went slurry and had difficulty standing. In the ER, she got IV TPA treatment. She has had stat CTA head and neck, both are negative. Right now she complaints of headache on her left side. She also has left side weakness, significant stuttered speech. Past History Past Medical History: hypertension, other (obesity.) Past Surgical History: Other (breast reduction and hand surgery.) Social history: no significant social history Family history: hypertension Medications and Allergies Allergies Allergy/AdvReac Type Severity Reaction Status Date / Time No Known Allergies Allergy Unverified 07/16/17 09:37 Home Medications Medication Instructions Recorded Confirmed Last Taken Type ALBUTEROL Inhaler [ProAir HFA 1 puff IH TID #1 pump 07/16/17 07/25/17 Unknown Rx Inhaler] Acetamin/Codeine 120-12Mg/5 ml 5 ml PO TID PRN #60 ml 07/16/17 07/25/17 Unknown Rx [Tylenol/Codeine] Amoxicillin/K Clav Tab [Augmentin 1 tab PO Q12HR #14 tab 07/16/17 07/25/17 Unknown Rx 875 mg] Benzonatate [Tessalon Perles] 100 mg PO Q8HR #24 capsule 07/16/17 07/25/17 Unknown Rx Aspirin [Aspir-Low] 81 mg PO DAILY 07/25/17 07/25/17 Unknown History Losartan Potassium [Cozaar] 25 mg PO DAILY 07/25/17 07/25/17 Unknown History Active Meds: Active Medications Hydralazine HCl (Apresoline) 5 mg IV Q6H PRN PRN Reason: Keep SBP between 160-185 mm Hg Nicardipine HCl 50 mg/ Sodium (Chloride) 250 mls @ 25 mls/hr IV TITR MARY ANN; Protocol Last Titration: 07/26/17 07:15 Dose: 1 mg/hr, 5 mls/hr Ondansetron HCl (Zofran) 4 mg IV Q8H PRN PRN Reason: N/V unrelieved by Reglan Sodium Chloride (Sodium Chloride Flush Syringe 10 Ml) 10 ml IV PRN PRN PRN Reason: LINE FLUSH Review of Systems All systems: negative (headache, left side weakness, slurry speech. All other 10 points of systems are reviewed and hegative.) Physical Examination - Vital Signs Vital Signs: Vital Signs Pulse Resp BP Pulse Ox 93 H 18 201/117 100 07/25/17 18:48 07/25/17 18:48 07/25/17 18:48 07/25/17 18:48 - Constitutional General appearance: comfortable - EENT EENT: Present: PERRL - Respiratory Respiratory: Present: lungs clear, normal breath sounds - Cardiovascular Cardiovascular: Present: regular rate, no murmurs Extremities: Present: no peripheral edema bilatateraly, no clubbing, cyanosis, no inflammation - Gastrointestinal Gastrointestinal: Present: soft, non-tender, non-distended - Integumentary Integumentary: Present: normal - Neurologic Cranial nerve examination: PERRL, EOMI, other (left face weakness.) Speech examination: other (stuttered speech.) Detailed motor examination: other (4/5 in all extremities. May be give away.) Detailed sensory examination: other (Left side decreased sensation.) Reflexes: 1+: ankle, bicep, knee, tricep - Assessment Assessment Interval: Baseline - Level of Consciousness 1a. Level of Consciousness: alert - LOC Questions 1b. LOC Questions: answers correctly - LOC Command 1c. LOC Commands: performs tasks correctly - Best Gaze 2. Best Gaze: normal - Visual 3. Visual: no visual loss - Facial Palsy 4. Facial Palsy: partial paralysis - Motor Arm 5a. Motor Arm Left: drift - Motor Leg 6a. Motor Leg Left: drift - Limb Ataxia 7. Limb Ataxia: absent (unable to access) - Sensory 8. Sensory: mild/moderate sensory loss - Dysarthria 10. Dysarthria: severe dysarthria - Extinction and Inattention 11. Extinction/Inattention: no abnormality Results - Laboratory Findings CBC and BMP: 07/25/17 19:02 07/25/17 19:02 Abnormal Lab Findings: Abnormal Labs 07/25/17 07/25/17 07/26/17 19:02 19:02 00:22 Hgb 14.9 H Hct 44.8 H Lymph % (Auto) 44.2 H [place] % (Auto) 8.0 H D-Dimer Total Creatine Kinase 209 H 198 H Cholesterol HDL Cholesterol 07/26/17 07/26/17 00:22 03:30 Hgb Hct Lymph % (Auto) [place] % (Auto) D-Dimer 1223.41 H Total Creatine Kinase Cholesterol 214 H HDL Cholesterol 63 H Assessment and Plan 1. Acute dysarthric speech, left face weakness, all extremity weakness. S/P IV TPA. CTA head and neck negative. If she has CVA, NIHSS 8. 2. Acute CVA with negative brain MRI as differential. Echo. 3. Probably complex migraine headache. PRN headache medicine. 4. Follow post TPA protocol. No antithrombus for 24 hours post TPA. Then Aspirin 81 mg q am and plavix 75 mg phs for 3 months. After that plavix only or follow neurology suggestions. 5. HTN. Permissive for 24 hours after CVA if less 180/105, then con optimize. 6. Lipid profile. 7. Obesity. Exercise. 8. Treat risk factors of CVA. 9. OT/PT, rehab and speech. 10. Plan discussed with her. 11. Please call tomorrow neurologist for following up. 12. If D/C, F/U with neurology in 6-8 weeks.
--- NOTE | 2017-07-26 14:12 | Consultation ---
History of Present Illness Consult date: 07/26/17 Reason for consult: other (stroke) History of present illness: Called to evaluate in the CCU admission, case of a 57-year-old -[place] female, who presented to the ER with near syncope, neurological deficit and possible stroke. According to patient's , she was talking on the phone yesterday when she started complaining of pressure in her chest and shortness of breath. She was immediately unable to speak and show signs of weakness on her left arm and leg. He rushed her immediately to the hospital, where telemetry consult was done for neurology and patient was initiated on TPA for stroke. This following negative brain scan for hemorrhage. Currently, the patient remains with what appeared to be aphasia and weakness involving her left upper and lower extremity. No chest pain reported. No hemoptysis. No additional neurological complaints. She just had her head MRI that was reported as negative. Patient is going to be admitted to the CCU in order to monitor blood pressure and neurological signs and symptoms. No additional respiratory history of any respiratory complaints. Family denied specifically any snoring or sleep apnea symptoms. No prior history of DVT or PE. No prior history of cardiac problems. She is pending an echocardiogram this afternoon Admission chest x-ray reported as negative Past History Past Medical History: hypertension, other (obesity.) Past Surgical History: Other (breast reduction and hand surgery.) Social history: no significant social history Family history: hypertension Medications and Allergies Allergies Allergy/AdvReac Type Severity Reaction Status Date / Time No Known Allergies Allergy Unverified 07/16/17 09:37 Home Medications Medication Instructions Recorded Confirmed Last Taken Type ALBUTEROL Inhaler [ProAir HFA 1 puff IH TID #1 pump 07/16/17 07/25/17 Unknown Rx Inhaler] Acetamin/Codeine 120-12Mg/5 ml 5 ml PO TID PRN #60 ml 07/16/17 07/25/17 Unknown Rx [Tylenol/Codeine] Amoxicillin/K Clav Tab [Augmentin 1 tab PO Q12HR #14 tab 07/16/17 07/25/17 Unknown Rx 875 mg] Benzonatate [Tessalon Perles] 100 mg PO Q8HR #24 capsule 07/16/17 07/25/17 Unknown Rx Aspirin [Aspir-Low] 81 mg PO DAILY 07/25/17 07/25/17 Unknown History Losartan Potassium [Cozaar] 25 mg PO DAILY 07/25/17 07/25/17 Unknown History Active Meds: Active Medications Hydralazine HCl (Apresoline) 5 mg IV Q6H PRN PRN Reason: Keep SBP between 160-185 mm Hg Nicardipine HCl 50 mg/ Sodium (Chloride) 250 mls @ 25 mls/hr IV TITR MARY ANN; Protocol Last Titration: 07/26/17 07:15 Dose: 1 mg/hr, 5 mls/hr Sodium Chloride (Nacl 0.9% 1000 Ml) 1,000 mls @ 75 mls/hr IV DIRECT MARY ANN Metoprolol Tartrate (Lopressor) 2.5 mg IV Q6HR MARY ANN Ondansetron HCl (Zofran) 4 mg IV Q8H PRN PRN Reason: N/V unrelieved by Reglan Sodium Chloride (Sodium Chloride Flush Syringe 10 Ml) 10 ml IV PRN PRN PRN Reason: LINE FLUSH Review of Systems ROS unobtainable: due to mental status Constitutional: weight gain Physical Examination Vital signs: Vital Signs Pulse Resp BP Pulse Ox 93 H 18 201/117 100 07/25/17 18:48 07/25/17 18:48 07/25/17 18:48 07/25/17 18:48 General appearance: no acute distress, alert, other (morbidly obese) Eyes: non-icteric ENT: oropharynx moist, other (Mallampati 4 with Shahriar closure) Neck: no JVD Ascultation: Bilateral: clear Cardiovascular: regular rate and rhythm Gastrointestinal: normoactive bowel sounds, non-tender, non-distended Integumentary: normal Extremities: no cyanosis, no edema Musculoskeletal: no deformities CN II-XII normal, other (decreased hand strength with limited flexion and extension of the left upper extremity. Paralyzed left lower extremity. Poor Babinski bilaterally) Results - Laboratory Findings CBC and BMP: 07/25/17 19:02 07/25/17 19:02 PT/INR, D-dimer PT 13.0 Sec. (12.2-14.9) 07/25/17 19:02 INR 0.94 (0.87-1.13) 07/25/17 19:02 D-Dimer 1223.41 ng/mlDDU (0-234) H 07/26/17 00:22 Abnormal lab findings: Abnormal Labs 07/25/17 07/25/17 07/26/17 19:02 19:02 00:22 Hgb 14.9 H Hct 44.8 H Lymph % (Auto) 44.2 H [place] % (Auto) 8.0 H D-Dimer Total Creatine Kinase 209 H 198 H Cholesterol HDL Cholesterol 07/26/17 07/26/17 00:22 03:30 Hgb Hct Lymph % (Auto) [place] % (Auto) D-Dimer 1223.41 H Total Creatine Kinase Cholesterol 214 H HDL Cholesterol 63 H - Diagnostic Findings Chest x-ray: report reviewed, image reviewed CT scan - chest: report reviewed Assessment and Plan Acute left-sided neurological deficit. On workup/treatment for acute stroke Hypertension Morbid obesity Dyspnea episode. Probably related to the above, but may need further workup VINCENT. No symptoms but in view of the above findings and physical exam, still a consideration Recommendations Close neurological monitoring. Blood pressure monitoring, diastolic between 90-108 mmHg, systolic under 180 mmHg ,next 24 to 48 hours Agree with echocardiogram Continue oxygen support if hypoxic and keep oximetry over 92% Monitor for apnea and oxygen desaturation during sleep time In view of dyspnea,normal chest x-rays and elevated d-dimer, I recommend a chest CTA to exclude pulmonary embolism. Cannot anticoagulate after TPA at this point. Also lower extremity venous Doppler DVT screening Will follow-up was admitted to the ICU. Discussed with the patient found in detail. All questions answered
[2017-07-26] MEDS: NACL 0.9% 1000 ML 1,000 ML IV SCH (15:05)
--- NOTE | 2017-07-26 17:42 | Vascular Lab Report ---
LOWER EXTREMITY VENOUS DUPLEX: REASON FOR EXAM: Short of breath and elevated d-dimer. COMMENTS ON THE RIGHT: All veins visualized are freely compressible without evidence of internal echogenicity. Flow is spontaneous and phasic throughout. COMMENTS ON THE LEFT: All veins visualized are freely compressible without evidence of internal echogenicity. Flow is spontaneous and phasic throughout. IMPRESSION: No evidence of acute or chronic deep venous thrombosis in either lower extremity.
--- NOTE | 2017-07-26 18:26 | Progress Note ---
Assessment and Plan Assessment and plan: 57-year-old woman was brought to the emergency room for evaluation. She has a history of hypertension, the son stated that she was on the phone check in someone, she complained of chest pain, shortness of breath and then went a phasic and had difficulty standing. patient remained, incoherent and confused Acute CVA, status post TPA Chest pain Hypertensive urgency Acute Metabolic Encephalopathy Plan Supportive care,. Neurology input noted, speech eval for dysarthria PT/OT eval BP control start Aspirin 81mg and plavix 75mg qhs from AM. post TPA protocol DVT/GI prophy History Interval history: Patient seen and examined in no acute distress. Hospitalist Physical - Physical exam Narrative exam: Gen. Appears stated, age resting comfortable. HEENT: Normocephalic, atraumatic, pupils equally round and reactive to light, extraocular movement intact, and no sclericterus,. No JVD or thyromegaly or nodule,neck supple, no carotid bruit ,mucous membranes moist, no exudate or erythema Heart: S1, S2, regular rate and rhythm Lungs: Clear to auscultation bilaterally, breathing comfortable Abdomen: Positive bowel sounds, nontender, nondistended, no organomegaly Extremity: No edema, cyanosis, clubbing Skin: No rash, nodules, warm, dry Neuro: confused. - Constitutional Vitals: Temp Pulse Resp BP Pulse Ox 99.1 F 94 H 18 116/72 94 07/26/17 15:50 07/26/17 15:50 07/26/17 15:50 07/26/17 15:50 07/26/17 15:50 Results - Labs CBC & Chem 7: 07/25/17 19:02 07/25/17 19:02 Labs: Laboratory Last Values WBC 6.0 K/mm3 (4.5-11.0) 07/25/17 19:02 RBC 4.93 M/mm3 (3.65-5.03) 07/25/17 19:02 Hgb 14.9 gm/dl (10.1-14.3) H 07/25/17 19:02 Hct 44.8 % (30.3-42.9) H 07/25/17 19:02 MCV 91 fl (79-97) 07/25/17 19:02 MCH 30 pg (28-32) 07/25/17 19:02 MCHC 33 % (30-34) 07/25/17 19:02 RDW 14.9 % (13.2-15.2) 07/25/17 19:02 Plt Count 260 K/mm3 (140-440) 07/25/17 19:02 Lymph % (Auto) 44.2 % (13.4-35.0) H 07/25/17 19:02 [place] % (Auto) 8.0 % (0.0-7.3) H 07/25/17 19:02 Eos % (Auto) 2.0 % (0.0-4.3) 07/25/17 19:02 Baso % (Auto) 1.1 % (0.0-1.8) 07/25/17 19:02 Lymph # 2.7 K/mm3 (1.2-5.4) 07/25/17 19:02 [place] # 0.5 K/mm3 (0.0-0.8) 07/25/17 19:02 Eos # 0.1 K/mm3 (0.0-0.4) 07/25/17 19:02 Baso # 0.1 K/mm3 (0.0-0.1) 07/25/17 19:02 Seg Neutrophils % 44.7 % (40.0-70.0) 07/25/17 19:02 Seg Neutrophils # 2.7 K/mm3 (1.8-7.7) 07/25/17 19:02 PT 13.0 Sec. (12.2-14.9) 07/25/17 19:02 INR 0.94 (0.87-1.13) 07/25/17 19:02 APTT 36.5 Sec. (24.2-36.6) 07/25/17 19:02 Thrombin Time 19.5 Sec. (15.1-19.6) 07/25/17 19:02 D-Dimer 1223.41 ng/mlDDU (0-234) H 07/26/17 00:22 Sodium 140 mmol/L (137-145) 07/25/17 19:02 Potassium 3.7 mmol/L (3.6-5.0) 07/25/17 19:02 Chloride 101.3 mmol/L (98-107) 07/25/17 19:02 Carbon Dioxide 25 mmol/L (22-30) 07/25/17 19:02 Anion Gap 17 mmol/L 07/25/17 19:02 BUN 11 mg/dL (7-17) 07/25/17 19:02 Creatinine 0.9 mg/dL (0.7-1.2) 07/25/17 19:02 Estimated GFR > 60 ml/min 07/25/17 19:02 BUN/Creatinine Ratio 12 % 07/25/17 19:02 Glucose 97 mg/dL (65-100) 07/25/17 19:02 POC Glucose 95 (70-105) 07/25/17 19:00 Calcium 9.8 mg/dL (8.4-10.2) 07/25/17 19:02 Total Creatine Kinase 135 units/L (30-135) 07/26/17 06:01 CK-MB (CK-2) 1.3 ng/mL (0.0-4.0) 07/26/17 06:01 CK-MB (CK-2) Rel Index 0.9 (0-4) 07/26/17 06:01 Troponin T < 0.010 ng/mL (0.00-0.029) 07/26/17 06:01 Triglycerides 132 mg/dL (2-149) 07/26/17 03:30 Cholesterol 214 mg/dL (50-199) H 07/26/17 03:30 LDL Cholesterol Direct 127 mg/dL (50-130) 07/26/17 03:30 HDL Cholesterol 63 mg/dL (40-59) H 07/26/17 03:30 Cholesterol/HDL Ratio 3.39 % 07/26/17 03:30 - Imaging and Cardiology MRI - head: image reviewed (negative)
[2017-07-26] MEDS: LOPRESSOR IV SCH ×2 (18:27→23:38)
[2017-07-27] MEDS ORDERED: TYLENOL PR ONE (02:02)
--- NOTE | 2017-07-27 02:17 | Cat Scan Report ---
FINAL REPORT PROCEDURE: CT ANGIO CHEST TECHNIQUE: Computerized tomographic angiography of the chest was performed after the IV injection of iodinated nonionic contrast including image processing. The image data was postprocessed using 2-dimensional multiplanar reformatted (MPR) and 3-dimensional (MIP and/or volume rendered) techniques. HISTORY: presyncope> SOb> stroke,high d dimer COMPARISON: No prior studies are available for comparison. FINDINGS: Heart and pericardium: Normal. Thoracic aorta: Normal. Pulmonary vasculature: There is no evidence of pulmonary arterial emboli. Lymph nodes: No enlarged lymph nodes. Lungs: Mild atelectasis bilateral lower lungs. No consolidation, effusion or pneumothorax. The central airway is patent. Pleural space: No effusion, thickening, or pneumothorax. Musculoskeletal structures: No significant abnormality. Upper abdominal structures: No significant abnormality. IMPRESSION: Atelectasis both lower lungs. No effusion or pneumothorax. There is no evidence of pulmonary arterial emboli.
[2017-07-27] MEDS: LOPRESSOR IV SCH ×3 (06:38→18:26)
[2017-07-27] MEDS: NACL 0.9% 1000 ML 1,000 ML IV SCH ×2 (06:38→21:40)
--- NOTE | 2017-07-27 12:12 | Progress Note ---
Assessment and Plan Assessment and plan: Acute CVA, status post TPA. MRI and CTA head and neck negative. Neurology following. Echocardiogram pending. Aspirin 81 mg q am and plavix 75 mg phs for 3 months. After that plavix only or follow neurology suggestions. Follow- up lipid profile. Continue PT/OT/speech therapy. Probably complex migraine headache. PRN headache medicine. Chest pain. CTA chest was negative. Cardiology consultation. Accelerated hypertension. Continue IV anti-hypertensive medications. Oropharyngeal dysphagia. Await speech therapy evaluation. History Interval history: No new issues overnight. Hospitalist Physical - Constitutional Vitals: Temp Pulse Resp BP Pulse Ox 98.7 F 80 20 140/91 97 07/27/17 09:09 07/27/17 10:00 07/27/17 10:00 07/27/17 09:09 07/27/17 10:00 General appearance: Present: no acute distress, well-nourished - EENT Eyes: Present: PERRL, EOM intact ENT: hearing intact, clear oral mucosa, dentition normal - Neck Neck: Present: supple, normal ROM - Respiratory Respiratory effort: normal Respiratory: bilateral: CTA - Cardiovascular Rhythm: regular Heart Sounds: Present: S1 & S2. Absent: gallop, rub - Extremities Extremities: no ischemia, No edema, Full ROM - Abdominal General gastrointestinal: soft, non-tender, non-distended, normal bowel sounds - Integumentary Integumentary: Present: clear, warm, dry - Neurologic Neurologic: CNII-XII intact, moves all extremities Results - Labs CBC & Chem 7: 07/25/17 19:02 07/25/17 19:02 Labs: Laboratory Last Values WBC 6.0 K/mm3 (4.5-11.0) 07/25/17 19:02 RBC 4.93 M/mm3 (3.65-5.03) 07/25/17 19:02 Hgb 14.9 gm/dl (10.1-14.3) H 07/25/17 19:02 Hct 44.8 % (30.3-42.9) H 07/25/17 19:02 MCV 91 fl (79-97) 07/25/17 19:02 MCH 30 pg (28-32) 07/25/17 19:02 MCHC 33 % (30-34) 07/25/17 19:02 RDW 14.9 % (13.2-15.2) 07/25/17 19:02 Plt Count 260 K/mm3 (140-440) 07/25/17 19:02 Lymph % (Auto) 44.2 % (13.4-35.0) H 07/25/17 19:02 [place] % (Auto) 8.0 % (0.0-7.3) H 07/25/17 19:02 Eos % (Auto) 2.0 % (0.0-4.3) 07/25/17 19:02 Baso % (Auto) 1.1 % (0.0-1.8) 07/25/17 19:02 Lymph # 2.7 K/mm3 (1.2-5.4) 07/25/17 19:02 [place] # 0.5 K/mm3 (0.0-0.8) 07/25/17 19:02 Eos # 0.1 K/mm3 (0.0-0.4) 07/25/17 19:02 Baso # 0.1 K/mm3 (0.0-0.1) 07/25/17 19:02 Seg Neutrophils % 44.7 % (40.0-70.0) 07/25/17 19:02 Seg Neutrophils # 2.7 K/mm3 (1.8-7.7) 07/25/17 19:02 PT 13.0 Sec. (12.2-14.9) 07/25/17 19:02 INR 0.94 (0.87-1.13) 07/25/17 19:02 APTT 36.5 Sec. (24.2-36.6) 07/25/17 19:02 Thrombin Time 19.5 Sec. (15.1-19.6) 07/25/17 19:02 D-Dimer 1223.41 ng/mlDDU (0-234) H 07/26/17 00:22 Sodium 140 mmol/L (137-145) 07/25/17 19:02 Potassium 3.7 mmol/L (3.6-5.0) 07/25/17 19:02 Chloride 101.3 mmol/L (98-107) 07/25/17 19:02 Carbon Dioxide 25 mmol/L (22-30) 07/25/17 19:02 Anion Gap 17 mmol/L 07/25/17 19:02 BUN 11 mg/dL (7-17) 07/25/17 19:02 Creatinine 0.9 mg/dL (0.7-1.2) 07/25/17 19:02 Estimated GFR > 60 ml/min 07/25/17 19:02 BUN/Creatinine Ratio 12 % 07/25/17 19:02 Glucose 97 mg/dL (65-100) 07/25/17 19:02 POC Glucose 95 (70-105) 07/25/17 19:00 Calcium 9.8 mg/dL (8.4-10.2) 07/25/17 19:02 Total Creatine Kinase 135 units/L (30-135) 07/26/17 06:01 CK-MB (CK-2) 1.3 ng/mL (0.0-4.0) 07/26/17 06:01 CK-MB (CK-2) Rel Index 0.9 (0-4) 07/26/17 06:01 Troponin T < 0.010 ng/mL (0.00-0.029) 07/26/17 06:01 Triglycerides 132 mg/dL (2-149) 07/26/17 03:30 Cholesterol 214 mg/dL (50-199) H 07/26/17 03:30 LDL Cholesterol Direct 127 mg/dL (50-130) 07/26/17 03:30 HDL Cholesterol 63 mg/dL (40-59) H 07/26/17 03:30 Cholesterol/HDL Ratio 3.39 % 07/26/17 03:30
[2017-07-27] MEDS: MORPHINE IV PRN ×2 (12:28→20:28)
--- NOTE | 2017-07-27 15:01 | Consultation ---
History of Present Illness Consult date: 07/27/17 History of present illness: full note dictated. Past History Past Medical History: hypertension, other (obesity.) Past Surgical History: Other (breast reduction and hand surgery.) Social history: no significant social history Family history: hypertension Medications and Allergies Allergies Allergy/AdvReac Type Severity Reaction Status Date / Time No Known Allergies Allergy Unverified 07/16/17 09:37 Home Medications Medication Instructions Recorded Confirmed Last Taken Type ALBUTEROL Inhaler [ProAir HFA 1 puff IH TID #1 pump 07/16/17 07/25/17 Unknown Rx Inhaler] Acetamin/Codeine 120-12Mg/5 ml 5 ml PO TID PRN #60 ml 07/16/17 07/25/17 Unknown Rx [Tylenol/Codeine] Amoxicillin/K Clav Tab [Augmentin 1 tab PO Q12HR #14 tab 07/16/17 07/25/17 Unknown Rx 875 mg] Benzonatate [Tessalon Perles] 100 mg PO Q8HR #24 capsule 07/16/17 07/25/17 Unknown Rx Aspirin [Aspir-Low] 81 mg PO DAILY 07/25/17 07/25/17 Unknown History Losartan Potassium [Cozaar] 25 mg PO DAILY 07/25/17 07/25/17 Unknown History Active Meds: Active Medications Hydralazine HCl (Apresoline) 5 mg IV Q6H PRN PRN Reason: Keep SBP between 160-185 mm Hg Sodium Chloride (Nacl 0.9% 1000 Ml) 1,000 mls @ 75 mls/hr IV DIRECT MARY ANN Last Admin: 07/27/17 06:38 Dose: 75 mls/hr Metoprolol Tartrate (Lopressor) 2.5 mg IV Q6HR MARY ANN Last Admin: 07/27/17 11:47 Dose: 2.5 mg Morphine Sulfate (Morphine) 2 mg IV Q6H PRN PRN Reason: Pain , Severe (7-10) Last Admin: 07/27/17 12:28 Dose: 2 mg Ondansetron HCl (Zofran) 4 mg IV Q8H PRN PRN Reason: N/V unrelieved by Reglan Sodium Chloride (Sodium Chloride Flush Syringe 10 Ml) 10 ml IV PRN PRN PRN Reason: LINE FLUSH Physical Examination Vital Signs Pulse Resp BP Pulse Ox 93 H 18 201/117 100 03/15/18 18:48 07/25/17 18:48 07/25/17 18:48 07/25/17 18:48 Results 07/25/17 19:02 07/25/17 19:02
[2017-07-28] MEDS: LOPRESSOR IV SCH ×4 (02:36→18:11)
[2017-07-28] MEDS: MORPHINE IV PRN ×3 (02:56→18:12)
[2017-07-28 08:04] LABS: Basophils # (Auto) 0.1 K/mm3 (0.0-0.1); Eosinophils # (Auto) 0.1 K/mm3 (0.0-0.4); Eosinophils % (Auto) 1.8 % (0.0-4.3); Hematocrit 40.5 % (30.3-42.9); Hemoglobin 13.2 gm/dl (10.1-14.3); Lymphocytes # (Auto) 1.6 K/mm3 (1.2-5.4); Lymphocytes % (Auto) 27.4 % (13.4-35.0); Mean Corpuscular HGB Conc 33 % (30-34); Mean Corpuscular Hemoglobin 30 pg (28-32); Mean Corpuscular Volume 91 fl (79-97); Monocytes # (Auto) 0.4 K/mm3 (0.0-0.8); Monocytes % (Auto) 7.4 % (0.0-7.3); Platelet Count 213 K/mm3 (140-440); Red Blood Count 4.43 M/mm3 (3.65-5.03); Red Cell Distribution Width 15.2 % (13.2-15.2)
[2017-07-28 08:27] LABS: BUN/Creatinine Ratio 18; Blood Urea Nitrogen 14 mg/dL (7-17); Calcium 8.6 mg/dL (8.4-10.2); Hemolysis Index 2
--- NOTE | 2017-07-28 11:04 | Progress Note ---
Assessment and Plan Assessment and plan: Acute CVA, status post TPA. MRI and CTA head and neck negative. Neurology following. Echocardiogram revealed left ventricular chamber size normal with EF of 65-70%. Right ventricle slightly dilated. No intracardiac shunt identified. Aspirin 81 mg q am and plavix 75 mg phs for 3 months. After that plavix only or follow neurology suggestions. Follow-up lipid profile. Continue PT/OT/speech therapy. Physical therapy recommends acute rehabilitation Probably complex migraine headache. PRN headache medicine. Chest pain. CTA chest was negative. Cardiology consultation. Accelerated hypertension. Continue IV anti-hypertensive medications. Oropharyngeal dysphagia. Await speech therapy evaluation. Disposition. Physical therapy recommends acute rehabilitation. Await case management follow-up. History Interval history: No new issues overnight. Hospitalist Physical - Constitutional Vitals: Temp Pulse Resp BP Pulse Ox 98.2 F 71 16 146/86 96 07/28/17 07:46 07/28/17 07:46 07/28/17 07:46 07/28/17 07:46 07/28/17 07:46 General appearance: Present: no acute distress, well-nourished - EENT Eyes: Present: PERRL, EOM intact ENT: hearing intact, clear oral mucosa, dentition normal - Neck Neck: Present: supple, normal ROM - Respiratory Respiratory effort: normal Respiratory: bilateral: CTA - Cardiovascular Rhythm: regular Heart Sounds: Present: S1 & S2. Absent: gallop, rub - Extremities Extremities: no ischemia, No edema, Full ROM - Abdominal General gastrointestinal: soft, non-tender, non-distended, normal bowel sounds - Integumentary Integumentary: Present: clear, warm, dry - Neurologic Neurologic: CNII-XII intact, moves all extremities Results - Labs CBC & Chem 7: 07/28/17 07:26 07/28/17 07:26 Labs: Laboratory Last Values WBC 5.9 K/mm3 (4.5-11.0) 07/28/17 07:26 RBC 4.43 M/mm3 (3.65-5.03) 07/28/17 07:26 Hgb 13.2 gm/dl (10.1-14.3) 07/28/17 07:26 Hct 40.5 % (30.3-42.9) 07/28/17 07:26 MCV 91 fl (79-97) 07/28/17 07:26 MCH 30 pg (28-32) 07/28/17 07:26 MCHC 33 % (30-34) 07/28/17 07:26 RDW 15.2 % (13.2-15.2) 07/28/17 07:26 Plt Count 213 K/mm3 (140-440) 07/28/17 07:26 Lymph % (Auto) 27.4 % (13.4-35.0) 07/28/17 07:26 [place] % (Auto) 7.4 % (0.0-7.3) H 07/28/17 07:26 Eos % (Auto) 1.8 % (0.0-4.3) 07/28/17 07: Baso % (Auto) 1.0 % (0.0-1.8) 07/28/17 07: Lymph # 1.6 K/mm3 (1.2-5.4) 07/28/17 07: [place] # 0.4 K/mm3 (0.0-0.8) 07/28/17 07: Eos # 0.1 K/mm3 (0.0-0.4) 07/28/17 07:26 Baso # 0.1 K/mm3 (0.0-0.1) 07/28/17 07:26 Seg Neutrophils % 62.4 % (40.0-70.0) 07/28/17 07: Seg Neutrophils # 3.7 K/mm3 (1.8-7.7) 07/28/17 07:26 PT 13.0 Sec. (12.2-14.9) 07/25/17 19:02 INR 0.94 (0.87-1.13) 07/25/17 19:02 APTT 36.5 Sec. (24.2-36.6) 07/25/17 19:02 Thrombin Time 19.5 Sec. (15.1-19.6) 07/25/17 19:02 D-Dimer 1223.41 ng/mlDDU (0-234) H 07/26/17 00:22 Sodium 146 mmol/L (137-145) H 07/28/17 07:26 Potassium 3.7 mmol/L (3.6-5.0) 07/28/17 07:26 Chloride 108.8 mmol/L (98-107) H 07/28/17 07:26 Carbon Dioxide 24 mmol/L (22-30) 07/28/17 07:26 Anion Gap 17 mmol/L 07/28/17 07:26 BUN 14 mg/dL (7-17) 07/28/17 07:26 Creatinine 0.8 mg/dL (0.7-1.2) 07/28/17 07:26 Estimated GFR > 60 ml/min 07/28/17 07:26 BUN/Creatinine Ratio 18 % 07/28/17 07:26 Glucose 75 mg/dL (65-100) 07/28/17 07:26 POC Glucose 95 (70-105) 07/25/17 19:00 Calcium 8.6 mg/dL (8.4-10.2) 07/28/17 07:26 Total Creatine Kinase 135 units/L (30-135) 07/26/17 06:01 CK-MB (CK-2) 1.3 ng/mL (0.0-4.0) 07/26/17 06:01 CK-MB (CK-2) Rel Index 0.9 (0-4) 07/26/17 06:01 Troponin T < 0.010 ng/mL (0.00-0.029) 07/26/17 06:01 Triglycerides 132 mg/dL (2-149) 07/26/17 03:30 Cholesterol 214 mg/dL (50-199) H 07/26/17 03:30 LDL Cholesterol Direct 127 mg/dL (50-130) 07/26/17 03:30 HDL Cholesterol 63 mg/dL (40-59) H 07/26/17 03:30 Cholesterol/HDL Ratio 3.39 % 07/26/17 03:30
[2017-07-28] MEDS: NACL 0.9% 1000 ML 1,000 ML IV SCH (11:42)
--- NOTE | 2017-07-28 12:20 | Progress Note ---
Assessment and Plan Acute CVA with Left hemiplegia. S/P TPA. Hypertension. Hyperlipidemia. Plan; Agree with current treatment. For modified barium swallow in Am. Subjective Date of service: 07/28/17 Interval history: Able to use left hand. Unable to move LLE. Scheduled for modified barium swallow tomorrow. Objective Vital Signs Temp Pulse Resp BP Pulse Ox 07/28/17 11:43 73 145/87 07/28/17 07:46 98.2 F 71 16 146/86 96 07/28/17 06:42 68 140/90 07/28/17 04:29 98.5 F 71 18 147/84 95 07/28/17 03:06 56 L 07/28/17 02:36 56 L 146/79 07/28/17 00:20 98.3 F 56 L 18 146/79 97 07/27/17 20:28 20 07/27/17 19:29 98.3 F 60 18 164/85 97 07/27/17 16:36 97.9 F 65 18 121/88 97 07/27/17 12:28 16 - Physical Examination General: Appears Well Neck: Positive: Carotid Upstroke (normal, no bruit). Negative: JVD/HJR Cardiac: Positive: Regular Rate, S4 Lungs: Positive: clear to auscultation Neuro: Positive: Weakness (LLE), Left Babinski Reflex Abdomen: Positive: Soft, Active Bowel Sounds Extremities: Present: normal - Labs and Meds CBC 07/28/17 Range/Units 07:26 WBC 5.9 (4.5-11.0) K/mm3 RBC 4.43 (3.65-5.03) M/mm3 Hgb 13.2 (10.1-14.3) gm/dl Hct 40.5 (30.3-42.9) % Plt Count 213 (140-440) K/mm3 Lymph # 1.6 (1.2-5.4) K/mm3 [place] # 0.4 (0.0-0.8) K/mm3 Eos # 0.1 (0.0-0.4) K/mm3 Baso # 0.1 (0.0-0.1) K/mm3 Comprehensive Metabolic Panel 07/28/17 Range/Units 07:26 Sodium 146 H (137-145) mmol/L Potassium 3.7 (3.6-5.0) mmol/L Chloride 108.8 H (98-107) mmol/L Carbon Dioxide 24 (22-30) mmol/L BUN 14 (7-17) mg/dL Creatinine 0.8 (0.7-1.2) mg/dL Glucose 75 (65-100) mg/dL Calcium 8.6 (8.4-10.2) mg/dL - Telemetry EKG Rhythm: Sinus Rhythm
[2017-07-29] MEDS: LOPRESSOR IV SCH ×6 (00:39→23:42)
[2017-07-29] MEDS: ZOFRAN IV PRN ×2 (00:50→18:59)
[2017-07-29] MEDS: NACL 0.9% 1000 ML 1,000 ML IV SCH (03:19)
--- NOTE | 2017-07-29 07:52 | Consultation ---
CONSULT REQUESTED BY: Hospitalist. REASON FOR CONSULTATION: Chest pain and history of stroke. HISTORY OF PRESENT ILLNESS: This 57-year-old patient came in with acute CVA involving left-sided limbs. The patient's was in the room. In the Emergency Room, the patient received TPA for acute CVA after making sure that she does not have any cerebral bleed. She did improve. She failed the swallowing test this morning. She is not taking any p.o. The patient is able to understand and communicate. She has some movement of her left-sided limbs. She did have pericardial chest pain or shortness of breath. She cannot describe further. The patient did not have hypertension for more than 10 years. She did have hypertension during . She has 4 children. SOCIAL HISTORY: The patient does not smoke, does not take any alcohol. PAST MEDICAL HISTORY: The patient has history of breast reduction surgery. REVIEW OF SYSTEMS: No history of diabetes mellitus or known hyperlipidemia. No history of thyroid disease. No history of previous stroke. No history of previous heart attack. No history of congestive heart failure. MEDICATIONS AT HOME: Include losartan 20 mg a day, albuterol inhaler t.i.d. p.r.n. PHYSICAL EXAMINATION: GENERAL: The patient in no acute distress. NECK: No JVP elevation, no carotid bruits. CARDIOVASCULAR: Heart sounds heard well. S4 is noted. No murmurs. CHEST: Lungs are clear. ABDOMEN: Soft, nontender. EXTREMITIES: No edema. Good pulses. NEUROLOGIC: She has evidence of left-sided weak upper and lower extremities 4/5. IMAGING DATA: EKG sinus rhythm, no acute changes within normal limits. MRI of the brain unremarkable nonenhanced MRI. Lower extremity for DVT is negative by venous duplex scan. CT of the chest, atelectasis both lower lungs. No evidence of pulmonary embolus. Chest x-ray revealed enlarged heart. No evidence of failure. Head CTA normal. Neck CTA normal. JOB# [id number] LANCE/OSVALDO
--- NOTE | 2017-07-29 11:15 | Progress Note ---
Assessment and Plan Assessment and plan: Acute CVA, status post TPA. MRI and CTA head and neck negative. Neurology following. Echocardiogram revealed left ventricular chamber size normal with EF of 65-70%. Right ventricle slightly dilated. No intracardiac shunt identified. Aspirin 81 mg q am and plavix 75 mg phs for 3 months. After that plavix only or follow neurology suggestions. Follow-up lipid profile. Continue PT/OT/speech therapy. Physical therapy recommends acute rehabilitation Probably complex migraine headache. PRN headache medicine. Chest pain. CTA chest was negative. Cardiology consultation. Accelerated hypertension. Continue IV anti-hypertensive medications. Oropharyngeal dysphagia. Await speech therapy evaluation. Disposition. Physical therapy recommends acute rehabilitation. Await case management follow-up. History Interval history: No new issues overnight. Hospitalist Physical - Constitutional Vitals: Temp Pulse Resp BP Pulse Ox 99.0 F 75 20 153/94 95 07/29/17 08:50 07/29/17 08:50 07/29/17 08:50 07/29/17 08:50 07/29/17 08:50 General appearance: Present: no acute distress, well-nourished - EENT Eyes: Present: PERRL, EOM intact ENT: hearing intact, clear oral mucosa, dentition normal - Neck Neck: Present: supple, normal ROM - Respiratory Respiratory effort: normal Respiratory: bilateral: CTA - Cardiovascular Rhythm: regular Heart Sounds: Present: S1 & S2. Absent: gallop, rub - Extremities Extremities: no ischemia, No edema, Full ROM - Abdominal General gastrointestinal: soft, non-tender, non-distended, normal bowel sounds - Integumentary Integumentary: Present: clear, warm, dry - Neurologic Neurologic: CNII-XII intact, moves all extremities Results - Labs CBC & Chem 7: 07/28/17 07:26 07/28/17 07:26 Labs: Laboratory Last Values WBC 5.9 K/mm3 (4.5-11.0) 07/28/17 07:26 RBC 4.43 M/mm3 (3.65-5.03) 07/28/17 07:26 Hgb 13.2 gm/dl (10.1-14.3) 07/28/17 07:26 Hct 40.5 % (30.3-42.9) 07/28/17 07:26 MCV 91 fl (79-97) 07/28/17 07:26 MCH 30 pg (28-32) 07/28/17 07:26 MCHC 33 % (30-34) 07/28/17 07:26 RDW 15.2 % (13.2-15.2) 07/28/17 07:26 Plt Count 213 K/mm3 (140-440) 07/28/17 07:26 Lymph % (Auto) 27.4 % (13.4-35.0) 07/28/17 07:26 [place] % (Auto) 7.4 % (0.0-7.3) H 07/28/17 07:26 Eos % (Auto) 1.8 % (0.0-4.3) 07/28/17 07: Baso % (Auto) 1.0 % (0.0-1.8) 07/28/17 07: Lymph # 1.6 K/mm3 (1.2-5.4) 07/28/17 07: [place] # 0.4 K/mm3 (0.0-0.8) 07/28/17 07: Eos # 0.1 K/mm3 (0.0-0.4) 07/28/17 07:26 Baso # 0.1 K/mm3 (0.0-0.1) 07/28/17 07:26 Seg Neutrophils % 62.4 % (40.0-70.0) 07/28/17 07: Seg Neutrophils # 3.7 K/mm3 (1.8-7.7) 07/28/17 07:26 PT 13.0 Sec. (12.2-14.9) 07/25/17 19:02 INR 0.94 (0.87-1.13) 07/25/17 19:02 APTT 36.5 Sec. (24.2-36.6) 07/25/17 19:02 Thrombin Time 19.5 Sec. (15.1-19.6) 07/25/17 19:02 D-Dimer 1223.41 ng/mlDDU (0-234) H 07/26/17 00:22 Sodium 146 mmol/L (137-145) H 07/28/17 07:26 Potassium 3.7 mmol/L (3.6-5.0) 07/28/17 07:26 Chloride 108.8 mmol/L (98-107) H 07/28/17 07:26 Carbon Dioxide 24 mmol/L (22-30) 07/28/17 07:26 Anion Gap 17 mmol/L 07/28/17 07:26 BUN 14 mg/dL (7-17) 07/28/17 07:26 Creatinine 0.8 mg/dL (0.7-1.2) 07/28/17 07:26 Estimated GFR > 60 ml/min 07/28/17 07:26 BUN/Creatinine Ratio 18 % 07/28/17 07:26 Glucose 75 mg/dL (65-100) 07/28/17 07:26 POC Glucose 95 (70-105) 07/25/17 19:00 Calcium 8.6 mg/dL (8.4-10.2) 07/28/17 07:26 Total Creatine Kinase 135 units/L (30-135) 07/26/17 06:01 CK-MB (CK-2) 1.3 ng/mL (0.0-4.0) 07/26/17 06:01 CK-MB (CK-2) Rel Index 0.9 (0-4) 07/26/17 06:01 Troponin T < 0.010 ng/mL (0.00-0.029) 07/26/17 06:01 Triglycerides 132 mg/dL (2-149) 07/26/17 03:30 Cholesterol 214 mg/dL (50-199) H 07/26/17 03:30 LDL Cholesterol Direct 127 mg/dL (50-130) 07/26/17 03:30 HDL Cholesterol 63 mg/dL (40-59) H 07/26/17 03:30 Cholesterol/HDL Ratio 3.39 % 07/26/17 03:30
--- NOTE | 2017-07-29 12:56 | Progress Note ---
Assessment and Plan Assessment: Acute CVA with Left hemiplegia - s/p TPA Accelerated hypertension Chest pain, atypical - Karen negative for AMI HLP Plan: For barium swallow study today. Optimize anti-hypertensive regimen. Consider lexiscan MPI stress test for risk stratification once medically stabilized as OP. The patient has been seen in conjunction with Dr. Tello who agrees with the assessment and plan of care. Subjective Date of service: 07/29/17 Principal diagnosis: acute CVA Interval history: pt resting comfortably in bed. c/o intermittent left-sided stabbing chest pain. BPs elevated. Objective Last Vital Signs Temp 99.0 F 07/29/17 08:50 Pulse 75 07/29/17 08:50 Resp 20 07/29/17 08:50 BP 153/94 07/29/17 08:50 Pulse Ox 95 07/29/17 08:50 - Physical Examination General: Appears Well HEENT: Positive: PERRL Neck: Positive: Carotid Upstroke (normal, no bruit). Negative: JVD/HJR Cardiac: Positive: Reg Rate and Rhythm, S1/S2 Lungs: Positive: clear to auscultation Neuro: Positive: Weakness (LLE), Left Babinski Reflex Abdomen: Positive: Soft, Active Bowel Sounds Extremities: Present: normal - Telemetry EKG Rhythm: Sinus Rhythm
[2017-07-29] MEDS: D5/0.45NS 1,000 ML IV SCH (16:25)
[2017-07-29] MEDS: MORPHINE IV PRN ×2 (19:13→23:41)
[2017-07-30] MEDS: LOPRESSOR IV SCH ×3 (05:30→18:53)
[2017-07-30] MEDS: D5/0.45NS 1,000 ML IV SCH (05:33)
--- NOTE | 2017-07-30 10:04 | Fluoroscopy Report ---
MODIFIED BARIUM SWALLOW History: dysphagia. Findings: Video radiography was provided by the radiologist for speech therapy to assess the swallowing mechanism. 1 fluoroscopic image was captured. Impression: Successful modified barium swallow.
--- NOTE | 2017-07-30 11:08 | Progress Note ---
Assessment and Plan Assessment and plan: Acute CVA, status post TPA. MRI and CTA head and neck negative. Neurology following. Echocardiogram revealed left ventricular chamber size normal with EF of 65-70%. Right ventricle slightly dilated. No intracardiac shunt identified. Aspirin 81 mg q am and plavix 75 mg phs for 3 months. After that plavix only or follow neurology suggestions. Follow-up lipid profile. Continue PT/OT/speech therapy. Physical therapy recommends acute rehabilitation Probably complex migraine headache. PRN headache medicine. Chest pain. CTA chest was negative. Cardiology consultation. Accelerated hypertension. Continue IV anti-hypertensive medications. Oropharyngeal dysphagia. Await speech therapy evaluation. Disposition. Physical therapy recommends acute rehabilitation. Await case management follow-up. History Interval history: No new issues overnight. Hospitalist Physical - Constitutional Vitals: Temp Pulse Resp BP Pulse Ox 98.3 F 58 L 20 146/86 97 07/30/17 09:10 07/30/17 09:09 07/30/17 09:09 07/30/17 09:09 07/30/17 09:09 General appearance: Present: no acute distress, well-nourished - EENT Eyes: Present: PERRL, EOM intact ENT: hearing intact, clear oral mucosa, dentition normal - Neck Neck: Present: supple, normal ROM - Respiratory Respiratory effort: normal Respiratory: bilateral: CTA - Cardiovascular Rhythm: regular Heart Sounds: Present: S1 & S2. Absent: gallop, rub - Extremities Extremities: no ischemia, No edema, Full ROM - Abdominal General gastrointestinal: soft, non-tender, non-distended, normal bowel sounds - Integumentary Integumentary: Present: clear, warm, dry - Neurologic Neurologic: CNII-XII intact, moves all extremities Results - Labs CBC & Chem 7: 07/28/17 07:26 07/28/17 07:26 Labs: Laboratory Last Values WBC 5.9 K/mm3 (4.5-11.0) 07/28/17 07:26 RBC 4.43 M/mm3 (3.65-5.03) 07/28/17 07:26 Hgb 13.2 gm/dl (10.1-14.3) 07/28/17 07:26 Hct 40.5 % (30.3-42.9) 07/28/17 07:26 MCV 91 fl (79-97) 07/28/17 07:26 MCH 30 pg (28-32) 07/28/17 07:26 MCHC 33 % (30-34) 07/28/17 07:26 RDW 15.2 % (13.2-15.2) 07/28/17 07:26 Plt Count 213 K/mm3 (140-440) 07/28/17 07:26 Lymph % (Auto) 27.4 % (13.4-35.0) 07/28/17 07:26 [place] % (Auto) 7.4 % (0.0-7.3) H 07/28/17 07:26 Eos % (Auto) 1.8 % (0.0-4.3) 07/28/17 07:26 Baso % (Auto) 1.0 % (0.0-1.8) 07/28/17 07:26 Lymph # 1.6 K/mm3 (1.2-5.4) 07/28/17 07: [place] # 0.4 K/mm3 (0.0-0.8) 07/28/17 07: Eos # 0.1 K/mm3 (0.0-0.4) 07/28/17 07:26 Baso # 0.1 K/mm3 (0.0-0.1) 07/28/17 07:26 Seg Neutrophils % 62.4 % (40.0-70.0) 07/28/17 07: Seg Neutrophils # 3.7 K/mm3 (1.8-7.7) 07/28/17 07:26 PT 13.0 Sec. (12.2-14.9) 07/25/17 19:02 INR 0.94 (0.87-1.13) 07/25/17 19:02 APTT 36.5 Sec. (24.2-36.6) 07/25/17 19:02 Thrombin Time 19.5 Sec. (15.1-19.6) 07/25/17 19:02 D-Dimer 1223.41 ng/mlDDU (0-234) H 07/26/17 00:22 Sodium 146 mmol/L (137-145) H 07/28/17 07:26 Potassium 3.7 mmol/L (3.6-5.0) 07/28/17 07:26 Chloride 108.8 mmol/L (98-107) H 07/28/17 07:26 Carbon Dioxide 24 mmol/L (22-30) 07/28/17 07:26 Anion Gap 17 mmol/L 07/28/17 07:26 BUN 14 mg/dL (7-17) 07/28/17 07:26 Creatinine 0.8 mg/dL (0.7-1.2) 07/28/17 07:26 Estimated GFR > 60 ml/min 07/28/17 07:26 BUN/Creatinine Ratio 18 % 07/28/17 07:26 Glucose 75 mg/dL (65-100) 07/28/17 07:26 POC Glucose 95 (70-105) 07/25/17 19:00 Calcium 8.6 mg/dL (8.4-10.2) 07/28/17 07:26 Total Creatine Kinase 135 units/L (30-135) 07/26/17 06:01 CK-MB (CK-2) 1.3 ng/mL (0.0-4.0) 07/26/17 06:01 CK-MB (CK-2) Rel Index 0.9 (0-4) 07/26/17 06:01 Troponin T < 0.010 ng/mL (0.00-0.029) 07/26/17 06:01 Triglycerides 132 mg/dL (2-149) 07/26/17 03:30 Cholesterol 214 mg/dL (50-199) H 07/26/17 03:30 LDL Cholesterol Direct 127 mg/dL (50-130) 07/26/17 03:30 HDL Cholesterol 63 mg/dL (40-59) H 07/26/17 03:30 Cholesterol/HDL Ratio 3.39 % 07/26/17 03:30
--- NOTE | 2017-07-30 15:31 | Progress Note ---
Assessment and Plan Assessment: Acute CVA with Left hemiplegia - s/p TPA Accelerated hypertension Chest pain, atypical - currently resolved; Karen negative for AMI; ECG with [facility] HLP Plan: Optimize anti-hypertensive regimen. Consider lexiscan MPI stress test for risk stratification once medically stabilized as OP. Nothing further to add from cardiac perspective at this time. Will sign off. Recommend follow up in our office with Dr. Thompson within 1-2 weeks of hospital discharge ([phone]). The patient has been seen in conjunction with Dr. Tello who agrees with the assessment and plan of care. Subjective Date of service: 07/30/17 Principal diagnosis: acute CVA Interval history: pt resting comfortably in bed. no current cardiac complaints. states she had PT this AM and is tired as a result. c/o headache. BPs remain labile. Objective Last Vital Signs Temp 98.1 F 07/30/17 11:53 Pulse 68 07/30/17 13:14 Resp 20 07/30/17 11:53 BP 161/70 07/30/17 13:33 Pulse Ox 97 07/30/17 11:53 - Physical Examination General: Appears Well HEENT: Positive: PERRL Neck: Positive: Carotid Upstroke (normal, no bruit). Negative: JVD/HJR Cardiac: Positive: Reg Rate and Rhythm, S1/S2 Lungs: Positive: clear to auscultation Neuro: Positive: Weakness (LLE), Left Babinski Reflex Abdomen: Positive: Soft, Active Bowel Sounds Extremities: Present: normal
[2017-07-30] MEDS: MORPHINE IV PRN (21:21)
[2017-07-31] MEDS: D5/0.45NS 1,000 ML IV SCH (01:10)
[2017-07-31] MEDS: LOPRESSOR IV SCH ×4 (01:12→18:00)
--- NOTE | 2017-07-31 10:59 | Progress Note ---
Assessment and Plan Assessment and plan: Acute CVA, status post TPA. MRI and CTA head and neck negative. Neurology following. Echocardiogram revealed left ventricular chamber size normal with EF of 65-70%. Right ventricle slightly dilated. No intracardiac shunt identified. Aspirin 81 mg q am and plavix 75 mg phs for 3 months. After that plavix only or follow neurology suggestions. Follow-up lipid profile. Continue PT/OT/speech therapy. Physical therapy recommends acute rehabilitation Probably complex migraine headache. PRN headache medicine. Chest pain. CTA chest was negative. Cardiology consultation. Accelerated hypertension. Continue IV anti-hypertensive medications as needed. Oropharyngeal dysphagia. Await speech therapy evaluation. Disposition. Physical therapy recommends acute rehabilitation. Await case management follow-up. History Interval history: No new issues overnight. Hospitalist Physical - Constitutional Vitals: Temp Pulse Resp BP Pulse Ox 97.3 F L 53 L 18 151/86 95 07/31/17 08:18 07/31/17 06:03 07/31/17 08:18 07/31/17 08:18 07/31/17 06:03 General appearance: Present: no acute distress, well-nourished - EENT Eyes: Present: PERRL, EOM intact ENT: hearing intact, clear oral mucosa, dentition normal - Neck Neck: Present: supple, normal ROM - Respiratory Respiratory effort: normal Respiratory: bilateral: CTA - Cardiovascular Rhythm: regular Heart Sounds: Present: S1 & S2. Absent: gallop, rub - Extremities Extremities: no ischemia, No edema, Full ROM - Abdominal General gastrointestinal: soft, non-tender, non-distended, normal bowel sounds - Integumentary Integumentary: Present: clear, warm, dry - Neurologic Neurologic: CNII-XII intact, moves all extremities Results - Labs CBC & Chem 7: 07/28/17 07:26 07/28/17 07:26 Labs: Laboratory Last Values WBC 5.9 K/mm3 (4.5-11.0) 07/28/17 07:26 RBC 4.43 M/mm3 (3.65-5.03) 07/28/17 07:26 Hgb 13.2 gm/dl (10.1-14.3) 07/28/17 07:26 Hct 40.5 % (30.3-42.9) 07/28/17 07:26 MCV 91 fl (79-97) 07/28/17 07:26 MCH 30 pg (28-32) 07/28/17 07:26 MCHC 33 % (30-34) 07/28/17 07:26 RDW 15.2 % (13.2-15.2) 07/28/17 07:26 Plt Count 213 K/mm3 (140-440) 07/28/17 07:26 Lymph % (Auto) 27.4 % (13.4-35.0) 07/28/17 07:26 Perry % (Auto) 7.4 % (0.0-7.3) H 07/28/17 07:26 Eos % (Auto) 1.8 % (0.0-4.3) 07/28/17 07: Baso % (Auto) 1.0 % (0.0-1.8) 07/28/17 07:26 Lymph # 1.6 K/mm3 (1.2-5.4) 07/28/17 07: Perry # 0.4 K/mm3 (0.0-0.8) 07/28/17 07: Eos # 0.1 K/mm3 (0.0-0.4) 07/28/17 07: Baso # 0.1 K/mm3 (0.0-0.1) 07/28/17 07:26 Seg Neutrophils % 62.4 % (40.0-70.0) 07/28/17 07: Seg Neutrophils # 3.7 K/mm3 (1.8-7.7) 07/28/17 07:26 PT 13.0 Sec. (12.2-14.9) 07/25/17 19:02 INR 0.94 (0.87-1.13) 07/25/17 19:02 APTT 36.5 Sec. (24.2-36.6) 07/25/17 19:02 Thrombin Time 19.5 Sec. (15.1-19.6) 07/25/17 19:02 D-Dimer 1223.41 ng/mlDDU (0-234) H 07/26/17 00:22 Sodium 146 mmol/L (137-145) H 07/28/17 07:26 Potassium 3.7 mmol/L (3.6-5.0) 07/28/17 07:26 Chloride 108.8 mmol/L (98-107) H 07/28/17 07:26 Carbon Dioxide 24 mmol/L (22-30) 07/28/17 07:26 Anion Gap 17 mmol/L 07/28/17 07:26 BUN 14 mg/dL (7-17) 07/28/17 07:26 Creatinine 0.8 mg/dL (0.7-1.2) 07/28/17 07:26 Estimated GFR > 60 ml/min 07/28/17 07:26 BUN/Creatinine Ratio 18 % 07/28/17 07:26 Glucose 75 mg/dL (65-100) 07/28/17 07:26 POC Glucose 95 (70-105) 07/25/17 19:00 Calcium 8.6 mg/dL (8.4-10.2) 07/28/17 07:26 Total Creatine Kinase 135 units/L (30-135) 07/26/17 06:01 CK-MB (CK-2) 1.3 ng/mL (0.0-4.0) 07/26/17 06:01 CK-MB (CK-2) Rel Index 0.9 (0-4) 07/26/17 06:01 Troponin T < 0.010 ng/mL (0.00-0.029) 07/26/17 06:01 Triglycerides 132 mg/dL (2-149) 07/26/17 03:30 Cholesterol 214 mg/dL (50-199) H 07/26/17 03:30 LDL Cholesterol Direct 127 mg/dL (50-130) 07/26/17 03:30 HDL Cholesterol 63 mg/dL (40-59) H 07/26/17 03:30 Cholesterol/HDL Ratio 3.39 % 07/26/17 03:30
[2017-07-31] MEDS ORDERED: TORADOL IV ONE (13:01)
[2017-08-01] MEDS: MORPHINE IV PRN ×2 (02:20→18:20)
[2017-08-01] MEDS: LOPRESSOR IV SCH ×4 (02:20→18:05)
--- NOTE | 2017-08-01 12:26 | Discharge Summary ---
Providers - Providers Date of Admission: 07/25/17 22:09 Date of discharge: 08/01/17 Attending physician: LIZABETH SCHMITZ 07/25/17 20:38 Speech Therapy Evaluation and Treat [CONS] Stat Reason For Exam: stroke 07/25/17 22:09 Occupational Therapy Evaluate and Treat [CONS] Routine Comment: Reason For Exam: Neuro deficits Physical Therapy Evaluation and Treat [CONS] Routine Comment: Reason For Exam: Neuro deficits 07/26/17 05:08 Consult to Physician [CONS] Routine Comment: Consulting Provider: APRIL VILLAFUERTE Physician Instructions: Reason For Exam: cva, s/p tpa 07/26/17 05:09 Consult to Physician [CONS] Routine Comment: office called [address] dr vicente leslie Consulting Provider: LOLA WEBER Physician Instructions: Reason For Exam: cc Primary care physician: EFRAIN QUIJANO Hospitalization Condition: Stable Disposition: DC-30 STILL A PATIENT Core Measure Documentation - Palliative Care Palliative Care/ Comfort Measures: Not Applicable Exam - Constitutional Vitals: Temp Pulse Resp BP Pulse Ox 98.2 F 60 16 129/74 96 08/01/17 07:11 08/01/17 07:11 08/01/17 07:11 08/01/17 07:11 08/01/17 07:11 Plan Follow up with: EFRAIN QUIJANO MD [Primary Care Provider] - 7 Days Prescriptions: Clopidogrel Bisulfate [Plavix] 75 mg PO QHS #90 tablet Simvastatin 20 mg PO QHS #30 tablet Aspirin [Aspir-Low] 81 mg PO QAM #90 tablet.
[2017-08-02] MEDS: MORPHINE IV PRN (00:20)
[2017-08-02] MEDS: LOPRESSOR IV SCH ×3 (00:27→12:00)
--- NOTE | 2017-08-02 10:43 | Event Note ---
Date: 08/02/17 Patient seen and examined. Discharge was held because of DME not arranged. Once DME has been arranged patient will be discharged. Please refer to previous discharge instructions.
[2017-08-02 15:48] VITALS: BP 124/80
== END 2017-08-02 15:45 | disposition home or self-care (01) | DRG 61 ==
LOC: ED 18:48 → CC1 22:09 → 4A 07-26 14:23
PROVIDERS: ADMIT Internal Medicine; ATTEND Hospitalist
DX: I63.8 Other cerebral infarction (principal); G93.41 Metabolic encephalopathy; Z68.41 Body mass index [BMI] 40.0-44.9, adult; G81.94 Hemiplegia, unspecified affecting left nondominant side; R13.12 Dysphagia, oropharyngeal phase; R55 Syncope and collapse; E66.01 Morbid (severe) obesity due to excess calories; G47.33 Obstructive sleep apnea (adult) (pediatric); I16.0 Hypertensive urgency; R07.89 Other chest pain; E78.5 Hyperlipidemia, unspecified; G43.909 Migraine, unspecified, not intractable, without status migrainosus; I10 Essential (primary) hypertension; Z79.82 Long term (current) use of aspirin; Z79.899 Other long term (current) drug therapy; Z82.49 Family history of ischemic heart disease and other diseases of the circulatory system
CPT/HCPCS: 36415; 70450; 70496; 70498; 70551; 71045; 71275; 74230; 80048; 80061; 82550; 82553; 82962; 84484; 85025; 85379; 85610; 85670; 85730; 93005; 93010; 93306; 93970; 96374; 96375; J0360; J1885; J2060; J2270; J2405; J2997; J7030; J7050; Q9967